=== PATIENT | male | born 1995 | race Two or more races ===

== ENCOUNTER 2017-02-20 21:53 | Emergency (ER) | payer SELFPAY ==
[2017-02-20 22:16] VITALS: RESP 16
[2017-02-20] MEDS ORDERED: DEXAMETHASONE 4 MG/ML VIAL IVP ONE (22:47)
[2017-02-20] MEDS ORDERED: KETOROLAC 15 MG/1 ML SDV IVP/IM ONE (22:47)
[2017-02-20] MEDS ORDERED: NS 1,000 ML IV ONE (22:47)
--- NOTE | 2017-02-20 23:33 | EDPHY ---
H & P Stated Complaint: [id number]. Exam Limitations: No limitations - Personal History Current Tetanus/Diphtheria Vaccine: Yes Tetanus Vaccine Date: 2014 - Medical/Surgical History Hx Asthma: No Hx Chronic Respiratory Disease: No Hx Diabetes: No Hx Cardiac Disease: No Hx Renal Disease: No Hx Cirrhosis: No Hx Alcoholism: No Hx HIV/AIDS: No Hx Splenectomy or Spleen Trauma: No Other PMH: nil - Social History Smoking Status: Never smoked Time Seen by Provider: 02/20/17 23:30 HPI/ROS: HPI: This is a 21-year-old male who presents with Chief Complaint: Frontal headache Location: Frontal Quality: Aching Duration: 3 days Signs and Symptoms: No fever, no neck stiffness, no vision changes, no photophobia, no noise sensitivity, no nausea, no vomiting Timing: Daily Severity: 08/15 Context: Patient reports that he is a local [employer] student and complains of gradual onset of frontal headache that is dull and aching in nature not associated with nausea, vomiting, fever, neck stiffness. He has no history of migraines in the past. Denies aura. He reports that he does get headaches from time to time that resolved with rest. He laid down for 3 hours yesterday and the headache did not go away. He has reported some sinus pressure but no rhinorrhea, cough, nasal congestion. His last eye exam was within the last year. He is currently wearing glasses. He is from [facility] but has been in [place] for the last 3 months. Modifying Factors: He has tried no [id number] pain medications Comment: ROS: see HPI Constitutional: No fever, no chills, no weight loss Eyes: No blurred vision Respiratory: No shortness of breath, no cough Cardiovascular: No chest pain Gastrointestinal: No nausea, no vomiting, no diarrhea Genitourinary: No dysuria Extremities: No myalgias Neurologic: No weakness, no numbness Skin: No rashes Hematologic: No bruising, no bleeding MEDICAL/SURGICAL/SOCIAL HISTORY: Medical history: Generally healthy. Does not take any regular medications. Surgical history: Denies Social history: Local [employer] student CONSTITUTIONAL: Extremely well-appearing polite young adult male, awake and alert, no obvious distress HEENT: Atraumatic and normocephalic, PERRL, EOMI. Tympanic membranes clear. Oropharynx clear, no exudate and moist pink mucosa. Nares patent, no mucosal edema, no rhinorrhea. Airway patent. No lymphadenopathy. No meningismus. Cardiovascular: Normal S1/S2, regular rate, regular rhythm, without murmur rub or gallop. PULMONARY/CHEST: Symmetrical and nontender. Clear to auscultation bilaterally. Good air movement. No accessory muscle usage. ABDOMEN: Soft, nondistended, nontender, no rebound, no guarding, no peritoneal signs, no masses or organomegaly. No CVAT. EXTREMITIES: 2/2 pulses, strength 5/5, no deformities, no clubbing, no cyanosis or edema. NEUROLOGICAL: no focal neuro deficits. GCS 15. Cranial nerves 2-12 grossly intact. SKIN: Warm and dry, no erythema. no rash. Good capillary refill. (Marcy Britt) Constitutional: Initial Vital Signs Temperature (C) 38.9 C H 02/20/17 22:10 Heart Rate 106 H 02/20/17 22:10 Respiratory Rate 16 02/20/17 22:10 Blood Pressure 136/83 H 02/20/17 22:10 O2 Sat (%) 93 02/20/17 22:10 O2 Delivery Mode Room Air Allergies/Adverse Reactions: No Known Allergies Allergy (Verified 02/20/17 22:16) Home Medications: Medication Instructions Recorded NK [No Known Home Meds] 03/21/15 Medical Decision Making ED Course/Re-evaluation: Patient politely declined head CT imaging which I deem is reasonable as no acute neurological findings Given IV fluids, IV Decadron, IV Toradol with moderate relief of pain No signs of meningitis/migraine/otitis media/sinusitis/CVA (Marcy Britt) PHYSICIAN DOCUMENTATION: The patient was evaluated and managed by the Physician Fuse Cutter. My co- signature indicates that I have reviewed this chart and I agree with the findings and plan of care as documented. I am the secondary supervising physician. (Lashell England) Differential Diagnosis: Headache including but not limited to subarachnoid hemorrhage, migraine headache , tension headache and infectious causes such as meningitis, pharyngitis and sinusitis. (Marcy Britt) - Data Points Medications Given: Discontinued Medications Dexamethasone (Decadron Injection) 8 mg IVP EDNOW ONE Stop: 02/20/17 22:48 Last Admin: 02/20/17 23:05 Dose: 8 mg Sodium Chloride (Ns) 1,000 mls @ 3,000 mls/hr IV EDNOW ONE Stop: 02/20/17 23:06 Last Admin: 02/20/17 23:10 Dose: 1,000 mls Ketorolac Tromethamine (Toradol) 15 mg IVP/IM EDNOW ONE Stop: 02/20/17 22:48 Last Admin: 02/20/17 23:06 Dose: 15 mg Departure - Departure Disposition: Home, Routine, Self-Care Clinical Impression: Head pain cephalgia Qualifiers: Headache type: other headache syndrome Qualified Code(s): G44.89 - Other headache syndrome Condition: Good Instructions: Cluster Headache (ED), Tension Headache (ED), Acute Headache (ED) Additional Instructions: Please use Mucinex and Sudafed as needed for nasal congestion. Drink plenty of fluids throughout the day. At a minimum of #8, 8 oz glasses of water. Take Tylenol and/or ibuprofen as needed for headache. If symptoms persist greater than 7-10 days follow-up with Neurology Referrals: Seb Loya DO [Doctor of Osteopathy] - As per Instructions
[2017-02-20 23:53] VITALS: BP 116/70; PULSE 107; TEMP 98.1; O2SAT 94
== END 2017-02-20 23:52 | disposition home or self-care (01) ==
DX: G44.89 Other headache syndrome (principal)
CPT/HCPCS: 96374; J1100; J1885

== ENCOUNTER 2017-05-05 18:21 | Emergency (ER) | payer BC, OTHER ==
[2017-05-05 18:28] VITALS: RESP 18; TEMP 98.2; O2SAT 98
[2017-05-05] MEDS ORDERED: NS 500 ML IV ONE (18:43)
--- NOTE | 2017-05-05 18:43 | EDPHY ---
H & P Time Seen by Provider: 05/05/17 18:28 HPI/ROS: CHIEF COMPLAINT: Belly button pain HISTORY OF PRESENT ILLNESS: Patient is a 22-year-old male who presents to the emergency department with belly button pain. He states that he has also had pus colored discharge for the past 3 days. He has mild discomfort surrounding the umbilicus. He denies nausea or vomiting. No fevers or chills. No change in his bowel movements. The patient states he has similar episode but less severe over year ago. It went away on its own. REVIEW OF SYSTEMS: My complete review of systems is negative except as mentioned in the HPI. Past Medical/Surgical History: Negative Past surgical history: Negative Social history: Negative Smoking Status: Never smoked Physical Exam: Afebrile. Vitals noted GENERAL: Well-appearing, in no acute distress, alert. HEENT: Eyes normal to inspection, normal pharynx, no signs of dehydration. NECK: [No thyromegaly, no lymphadenopathy, supple. RESPIRATORY: Clear to auscultation bilaterally, no rales, rhonchi or wheezing. CVS: Regular rate and rhythm, no rubs, murmurs, or gallops. ABDOMEN: Soft, nondistended, no organomegaly. Patient has pus colored discharge at his umbilicus. There is mild tenderness to palpation surrounding his umbilicus. Minimal erythema. BACK: Normal to inspection, no CVA tenderness. SKIN: Normal color, no rash, warm, dry. No pallor. EXTREMITIES: No pedal edema, no calf tenderness, no Homans sign or cords, no joint swelling. NEURO/PSYCH: Alert and oriented x3, normal mood and affect, normal motor sensory exam. No obvious cranial nerve deficit. Constitutional: Initial Vital Signs Temperature (C) 36.8 C 05/05/17 18:26 Heart Rate 91 05/05/17 18:26 Respiratory Rate 18 05/05/17 18:26 Blood Pressure 121/76 H 05/05/17 18:26 O2 Sat (%) 98 05/05/17 18:26 O2 Delivery Mode Room Air Allergies/Adverse Reactions: No Known Allergies Allergy (Verified 02/20/17 22:16) Home Medications: Medication Instructions Recorded Cephalexin [Keflex (*)] 500 mg PO QID 7 Days cap 05/05/17 Medical Decision Making - Diagnostics Imaging Results: Imaging Impressions Abdomen CT 05/05/17 18:43 Impression: 1. Small umbilical fluid collection suggesting abscess/phlegmon with no intraperitoneal extension. 2. Small, almost certainly benign pulmonary nodules. If the patient is a smoker or is high risk, unenhanced low dose chest CT for follow up in 12 months is considered optional. Otherwise, no further follow up is needed per Fleischner Society criteria. 3. Additional findings, as above. Findings discussed with Meghana Moeller MD on May 05, 2017 at 2001 hours. Procedures: Procedure: Abscess wound packing. The abscess was already open. Incision did not need to be performed. The wound was packed with gauze. ED Course/Re-evaluation: In the emergency department I discussed possible etiologies with the patient. I answered all his questions. IV was placed. Laboratory studies and CT were ordered. Patient's white count and hematocrit are normal. Platelets unremarkable. Chemistry panel is normal. 2000: I discussed the case with Dr. Griffin. He states the patient has a umbilical abscess 1.5 x 0.8 x 1.3. This does not track. There is no intraparenchymal involvement. On examination the patient had an open umbilicus. This was allowing pus to drain. Acute tip was placed and entered the abscess space. The space was irrigated copiously with normal saline irrigation. Packing was placed. The patient was instructed removed the packing in 2-3 days. Patient will take his entire course of antibiotics. He will follow up with Dr. Shan Garcia. He is given warnings prior to leaving. Will return with worsening symptoms. Differential Diagnosis: My differential includes but is not limited to abscess, cellulitis, fistula, foreign body, hernia - Data Points Laboratory Results: Laboratory Results 05/05/17 18:50 05/05/17 18:50 05/05/17 05/05/17 18:50 18:50 WBC 9.28 10^3/uL 10^3/uL (3.80-9.50) RBC 6.77 10^6/uL H 10^6/uL (4.40-6.38) Hgb 13.1 g/dL L g/dL (13.7-17.5) Hct 41.9 % % (40.0-51.0) MCV 61.9 fL L fL (81.5-99.8) MCH 19.4 pg L pg (27.9-34.1) MCHC 31.3 g/dL L g/dL (32.4-36.7) RDW 18.3 % H % (11.5-15.2) Plt Count 253 10^3/uL 10^3/uL (150-400) MPV 9.5 fL fL (8.7-11.7) Neut % (Auto) 69.6 % % (39.3-74.2) Lymph % (Auto) 20.0 % % (15.0-45.0) [place] % (Auto) 7.2 % % (4.5-13.0) Eos % (Auto) 2.5 % % (0.6-7.6) Baso % (Auto) 0.4 % % (0.3-1.7) Nucleat RBC Rel Count 0.0 % % (0.0-0.2) Absolute Neuts (auto) 6.45 10^3/uL 10^3/uL (1.70-6.50) Absolute Lymphs (auto) 1.86 10^3/uL 10^3/uL (1.00-3.00) Absolute Monos (auto) 0.67 10^3/uL 10^3/uL (0.30-0.80) Absolute Eos (auto) 0.23 10^3/uL 10^3/uL (0.03-0.40) Absolute Basos (auto) 0.04 10^3/uL 10^3/uL (0.02-0.10) Absolute Nucleated RBC 0.00 10^3/uL 10^3/uL (0-0.01) Immature Gran % 0.3 % % (0.0-1.1) Immature Gran # 0.03 10^3/uL 10^3/uL (0.00-0.10) Platelet Estimate ADEQUATE (ADEQ) Polychromasia 1+ H Hypochromasia 3+ H Basophilic Stippling 1+ H Microcytic Cells 2+ H Smear Review By Pending Sodium 143 mEq/L mEq/L (135-145) Potassium 3.8 mEq/L mEq/L (3.5-5.2) Chloride 102 mEq/L mEq/L (97-110) Carbon Dioxide 26 mEq/l mEq/l (22-31) Anion Gap 15 mEq/L mEq/L (8-16) BUN 11 mg/dL mg/dL (7-23) Creatinine 0.7 mg/dL mg/dL (0.7-1.3) Estimated GFR > 60 Glucose 100 mg/dL mg/dL (70-100) Calcium 9.7 mg/dL mg/dL (8.5-10.4) Microbiology Results: MICROBIOLOGY 05/05/17 18:45 Abdomen - Swab Gram Stain - Final Medications Given: Discontinued Medications Sodium Chloride (Ns) 500 mls @ 0 mls/hr IV EDNOW ONE; Wide Open PRN Reason: Protocol Stop: 05/05/17 18:44 Last Admin: 05/05/17 18:54 Dose: 500 mls Departure - Departure Disposition: Home, Routine, Self-Care Clinical Impression: Abscess, umbilical Condition: Good Instructions: Abscess (ED) Additional Instructions: You should remove your packing in 2-3 days. Take your entire course of antibiotics. Follow-up with Dr. Malcolm Garcia. Call his office tomorrow morning to make an appointment. You should take Keflex 500 mg 4 times daily. Fill the prescription given. Referrals: Shan Garica MD [Medical Doctor] - 5-7 days, call for appt. Prescriptions: Cephalexin [Keflex (*)] 500 mg PO QID 7 Days cap
[2017-05-05 18:58] LABS: PLATELET COUNT 253 10^3/uL (150-400)
[2017-05-05] MEDS ORDERED: IOPAMIDOL (ISOVUE-300) 100 ML BTL ONE (19:24)
[2017-05-05] MEDS ORDERED: CEPHALEXIN 500MG PREPACK#4 BTL TAKEHOME ONE (20:30)
[2017-05-05 20:41] VITALS: BP 136/83; PULSE 86
== END 2017-05-05 20:52 | disposition home or self-care (01) ==
DX: L02.216 Cutaneous abscess of umbilicus (principal); E86.9 Volume depletion, unspecified
CPT/HCPCS: Q9967